=== PATIENT | female | born 1975 | race Caucasian/White ===

== ENCOUNTER 2020-03-01 07:10 | Day surgery (SDC) | payer OTHER ==
[~2020-03-01] VITALS: Ht 167.6 cm; Wt 100.0 kg
[~2020-03-01 07:10] MED LIST: ALLEGRA ALLERGY60 MG PO; SULFASALAZINE500 MG PO; VITAMIN D3250 MC2 PO
--- NOTE | 2020-03-01 09:41 | NUR ---
03/01/20 0941 Arlen Hoffman 0929- PT ARRIVES TO PACU EASILY AROUSABLE TO VOICE. PT REPORTS NO PAIN OR NAUSEA. RESP EVEN AND UNLABORED. OXYGEN SAT HIGH 90'S TO 100% ON 6L VIA MASK. 0936- OXYGEN MASK REMOVED. 0938- PT PROVIDED WITH ICE WATER PER HER REQUEST. PT TOLERATING WELL.
--- NOTE | 2020-03-01 10:02 | NUR ---
PT ALERT, ORIENTED AND SUPPORTED BY WHO WILL WAIT IN VEHICLE. SHE SEEMS PREPARED, ALL QUESTIONS ASKED, ANSWERED. PT REQUESTED PRAYER, WILL FOLLOW NEEDED
--- NOTE | 2020-03-01 10:10 | NUR ---
0955: PATIENT BACK IN DAY SURGERY ROOM FROM PACU. RATES PAIN 2-3/10. VS CHECKED. BILATERAL EARS WNL. TOLERATING ICE WATER. SCDs ON. DECLINES SOMETHING TO EAT AT THIS TIME. PATIENTS STATES SHE FEELS DROWSY, WOULD LIKE TO REST. LIGHTS DIMMED. CALL LIGHT WITHIN REACH.
--- NOTE | 2020-03-01 11:38 | NUR ---
1100: VS CHECKED. PATIENT ASSISTED OOB, TO GET DRESSED AND TO THE BATHROOM. VOID WITHOUT DIFFICULTY. SBA BACK TO ROOM. GAIT STEADY. 1117: IV DC'D WNL. TIP INTACT. DRESSING APPLIED. DISCHARGE INSTRUCTIONS GIVEN TO PATIENT AND . PATIENT DISCHARGED TO HOME WITH VIA WHEELCHAIR.
--- NOTE | 2020-03-06 10:11 | OR ---
[facility] [address], [place] [address] Signed DATE OF OPERATION: 03/01/2020 SURGEON: Salena Walker MD PREOPERATIVE DIAGNOSIS: Chronic otorrhea with retained PE tubes and foreign body reaction. POSTOPERATIVE DIAGNOSIS: Chronic otorrhea with retained PE tubes and foreign body reaction. PROCEDURE: Removal of PE tubes bilaterally with paper patch. PROCEDURE INDICATIONS: This 44-year-old female had PE tubes placed in her ears when she was almost 28 years old. She had PE tubes once as a toddler and then again at 28 years of age with the tubes are stayed in all this time and in the last few years she has had trouble with chronically draining ears and granulation tissue associated with bacterial and with fungus and yeast and the tubes are felt to be more troubled than they were because of inability to cure the otorrhea. Removal was indicated and because of them being held in by granulation tissue it is felt to be too much to do in the office to avoid undue pain. DESCRIPTION OF PROCEDURE: The patient was placed in the supine position, had induction of general anesthesia by laryngeal mask. The left side was inspected with the otologic microscope. There was dried debris and secretion on the floor of the canal with fungal hyphae growing on it and this was suctioned out and any other old secretions. The tube could be well visualized, it had some granulation tissue associated with it. Myringotomy was made in the inferior aspect of the PE tube from the annulus up to joining the tympanostomy hole. It was a collapsible White tube and it was easily extracted without damaging the ear drum. Granulation tissue a little bit was removed, then a paper patch was cut to fit over the hole and placed and the blood suctioned until it was only a minimum and the blood will serve as a glue to hold that in place. The same thing was then done on the right side. No alcohol at all was placed in either ear canal prior to removal of the tube. No fungal hyphae present on the right side, more granulation tissue biofilm was noted on the tube. This tube was removed in similar fashion by making a myringotomy in the inferior aspect from the annulus to the tube. Again, a paper patch of lens paper was cut to fit and placed over the hole. The patient was awakened and sent to recovery in good condition. PATIENT NAME: PERICO OCHOA OPERATIVE REPORT DATE OF : 71 REPORT #: [id number] PHYSICIAN: SALENA WALKER MD PCP: MAXI MIRZA MD REPORT IS CONFIDENTIAL AND NOT TO BE RELEASED WITHOUT AUTHORIZATION [facility] [address], [place] [address] Signed ESTIMATED BLOOD LOSS: Less than 1 mL. COMPLICATIONS: No complications. Salena Walker MD [facility] /[id number] Copies: ~ PATIENT NAME: PERICO OCHOA OPERATIVE REPORT DATE OF : 71 REPORT #: [id number] PHYSICIAN: SALENA WALKER MD PCP: MAXI MIRZA MD REPORT IS CONFIDENTIAL AND NOT TO BE RELEASED WITHOUT AUTHORIZATION
== END 2020-03-01 11:17 | disposition home or self-care (01) ==
LOC: DS 07:10 → OPS 07:10
PROVIDERS: ATTEND Otolaryngology
PROC: 09Q70ZZ Repair Right Tympanic Membrane, Open Approach (ICD-10-PCS; 2020-03-01)
PROC: 09Q80ZZ Repair Left Tympanic Membrane, Open Approach (ICD-10-PCS; principal; 2020-03-01 09:00)
DX: Z45.82 Encounter for adjustment or removal of myringotomy device (stent) (tube) (principal); H92.13 Otorrhea, bilateral; Z96.22 Myringotomy tube(s) status
CPT/HCPCS: 00126; J1100; J2001; J2405; J2704; J7121